=== PATIENT | female | born 1980 | race African-American/Black ===

== ENCOUNTER 2020-04-20 08:37 | Emergency (ER) | payer OTHER ==
[~2020-04-20] VITALS: Ht 157.5 cm; Wt 59.0 kg
[2020-04-20] MEDS ORDERED: DIPHENHYDRAMINE 50MG/ML VIAL IV ONE ×2 (09:00→14:00)
[2020-04-20] MEDS ORDERED: SODIUM CHLORIDE 0.9% 1,000 ML IV ONE (09:00)
[2020-04-20] MEDS ORDERED: METHYLPREDNISOLONE SOD SUCC 125 MG/2 ML VIAL IV ONE (09:00)
[2020-04-20 09:51] LABS: BASOPHILS % 0.4 % (0.0-2.0); EOSINOPHILS % 5.4 % (0.0-5.0); HEMATOCRIT. 31.9 % (36.0-48.0); HEMOGLOBIN. 9.6 g/dL (12.0-16.0); MEAN CORPUSCULAR HEMOGLOBIN 19.5 pg (28.0-32.0); MEAN CORPUSCULAR VOLUME 64.9 fL (81.0-99.0); MEAN PLATELET VOLUME 9.5 fl (7.4-10.4); NEUTROPHILS % 58.2 % (40.0-76.0); PLATELET 247 x1000/uL (130-400); RED BLOOD CELL COUNT 4.91 mill/uL (4.2-5.4); RED CELL DISTRIBUTION WIDTH 18.9 % (11.6-14.6)
[2020-04-20 09:57] LABS: CHLORIDE 105 mEq/L (98-107)
[2020-04-20 10:09] LABS: PLATELET ESTIMATE NORMAL
[2020-04-20] MEDS ORDERED: POTASSIUM CHLORIDE 20MEQ TABLET SR PO ONE (11:15)
[2020-04-20] MEDS ORDERED: LEVOFLOXACIN 750MG PREMIX 150 ML IV ONE (11:30)
[2020-04-20 15:38] VITALS: BP 146/86
== END 2020-04-20 16:00 | disposition short-term general hospital (02) ==
LOC: ER 08:48
DX: L03.211 Cellulitis of face (principal); T78.1XXA Other adverse food reactions, not elsewhere classified, initial encounter; T78.49XA Other allergy, initial encounter; I10 Essential (primary) hypertension; E11.9 Type 2 diabetes mellitus without complications; J45.909 Unspecified asthma, uncomplicated; E87.6 Hypokalemia; Z91.010 Allergy to peanuts; Z88.0 Allergy status to penicillin; Z98.890 Other specified postprocedural states; X58.XXXA Exposure to other specified factors, initial encounter
CPT/HCPCS: 36415; 70486; 80053; 82962; 85025; 93005; 96361; 96365; 96375; 99285; J1200; J1956; J2930; J7030